=== PATIENT | female | born 1995 | race Hispanic/Latino ===

== ENCOUNTER 2019-02-13 19:13 | Emergency (ER) | payer SELFPAY ==
[2019-02-13 20:25] LABS: Urine Bacteria <20 /HPF (<20); Urine Culture Reflex Order NOT NEEDED; Urine RBC <5 /HPF (NONE SEEN)
[2019-02-13 20:26] LABS: Urine Blood TRACE (NEG); Urine Glucose NEGATIVE (NEG); Urine Protein NEGATIVE (NEG); Urine Specific Gravity <1.005 (1.005-1.030)
--- NOTE | 2019-02-13 20:28 | RAD REPORT ---
EXAM DESCRIPTION: RAD - Chest Single View - 02/13/2019 7:55 pm CLINICAL HISTORY: CHEST PAIN Chest pain. COMPARISON: No comparisons FINDINGS: Portable technique limits examination quality. The lungs are grossly clear. The heart is normal in size. No displaced fractures. IMPRESSION: No acute intrathoracic process suspected.
--- NOTE | 2019-02-13 20:57 | EDPHYS ---
Physician Documentation [facility] Name: Holli Arellano Age: 23 yrs Sex: Female : 1995 Arrival Date: 02/13/2019 Time: 19:13 Bed 6 Private MD: ED Physician Presley Renee HPI: 02/13 19:48 This 23 yrs old Female presents to ER via Ambulatory with complaints of Chest pan Pain. 19:48 The patient or guardian reports chest pain that is located primarily in the anterior pan chest wall. The pain does not radiate. Associated signs and symptoms: Pertinent positives: shortness of breath. The chest pain is described as dull. Duration: The patient or guardian reports multiple episodes, with no pattern. Modifying factors: The symptoms are alleviated by nothing. the symptoms are aggravated by nothing. Severity of pain: At its worst the pain was mild in the emergency department the pain is unchanged. The patient has not experienced similar symptoms in the past. 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 - Social history:: Smoking status: Patient/guardian denies using tobacco. - Ebola Screening: : No symptoms or risks identified at this time. - Family history:: not pertinent. ROS: 19:48 Constitutional: Negative for fever, chills, and weight loss, Eyes: Negative for injury, pan pain, redness, and discharge, ENT: Negative for injury, pain, and discharge, Neck: Negative for injury, pain, and swelling, Respiratory: Negative for shortness of breath, cough, wheezing, and pleuritic chest pain, Abdomen/GI: Negative for abdominal pain, nausea, vomiting, diarrhea, and constipation, Back: Negative for injury and pain, : Negative for injury, bleeding, discharge, and swelling, MS/Extremity: Negative for injury and deformity, Skin: Negative for injury, rash, and discoloration, Neuro: Negative for headache, weakness, numbness, tingling, and seizure. 19:48 Cardiovascular: Positive for chest pain. Exam: 19:48 Constitutional: This is a well developed, well nourished patient who is awake, alert, pan and in no acute distress. Head/Face: Normocephalic, atraumatic. Eyes: Pupils equal round and reactive to light, extra-ocular motions intact. Lids and lashes normal. Conjunctiva and sclera are non-icteric and not injected. Cornea within normal limits. Periorbital areas with no swelling, redness, or edema. ENT: Nares patent. No nasal discharge, no septal abnormalities noted. Tympanic membranes are normal and external auditory canals are clear. Oropharynx with no redness, swelling, or masses, exudates, or evidence of obstruction, uvula midline. Mucous membranes moist. Neck: Trachea midline, no thyromegaly or masses palpated, and no cervical lymphadenopathy. Supple, full range of motion without nuchal rigidity, or vertebral point tenderness. No Meningismus. Chest/axilla: Normal chest wall appearance and motion. Nontender with no deformity. No lesions are appreciated. Cardiovascular: Regular rate and rhythm with a normal S1 and S2. No gallops, murmurs, or rubs. Normal PMI, no JVD. No pulse deficits. Respiratory: Lungs have equal breath sounds bilaterally, clear to auscultation and percussion. No rales, rhonchi or wheezes noted. No increased work of breathing, no retractions or nasal flaring. Abdomen/GI: Soft, non-tender, with normal bowel sounds. No distension or tympany. No guarding or rebound. No evidence of tenderness throughout. Back: No spinal tenderness. No costovertebral tenderness. Full range of motion. Skin: Warm, dry with normal turgor. Normal color with no rashes, no lesions, and no evidence of cellulitis. MS/ Extremity: Pulses equal, no cyanosis. Neurovascular intact. Full, normal range of motion. Neuro: Awake and alert, GCS 15, oriented to person, place, time, and situation. Cranial nerves II-XII grossly intact. Motor strength 5/5 in all extremities. Sensory grossly intact. Cerebellar exam normal. Normal gait. Psych: Awake, alert, with orientation to person, place and time. Behavior, mood, and affect are within normal limits. 19:48 Musculoskeletal/extremity: DVT Exam: No signs of deep vein thrombosis. no pain, no swelling, no tenderness, negative Homans' sign noted on exam, no appreciated bluish discoloration, no erythema, no increased warmth. 19:48 Psych: Behavior/mood is pleasant, cooperative, Affect is calm, Oriented to person, place, time, Patient has no thoughts/intents to harm self or others. Vital Signs: 19:19 BP 120 / 80; Pulse 88; Resp 18; Temp 97.1; Pulse Ox 98% on R/A; Weight 54.43 kg; Height la1 5 ft. 1 in. (154.94 cm); Pain 4/10; 19:19 Body Mass Index 22.67 (54.43 kg, 154.94 cm) la1 MDM: 19:20 Patient medically screened. [facility] 19:51 Data reviewed: vital signs, nurses notes, lab test result(s), radiologic studies. [facility] 02/13 19:51 Order name: Urine Microscopic Only; Complete Time: 20:38 02/13 19:51 Order name: D-Dimer 02/13 19:35 Order name: Chest Single View XRAY; Complete Time: 20:38 [facility] 02/13 19:51 Order name: Urine Culture 02/13 19:51 Order name: Test, Serum 02/13 20:14 Order name: Urine Dipstick--Ancillary (enter results); Complete Time: 20:38 ar5 02/13 19:35 Order name: EKG; Complete Time: 19:36 [facility] 02/13 19:35 Order name: EKG - Nurse/Tech; Complete Time: 19:50 [facility] 02/13 19:35 Order name: Urine Dipstick-Ancillary (obtain specimen); Complete Time: 19:50 [facility] 02/13 19:35 Order name: Urine Test (obtain specimen); Complete Time: 19:50 [facility] Administered Medications: No medications were administered Disposition: 02/13/19 20:57 Discharged to Home. Impression: Other chest pain - non cardiac, Urinary tract infection, site not specified. - Condition is Stable. - Discharge Instructions: Alcohol Intoxication, Chest Wall Pain, Dysuria, Urinary Tract Infection, Adult, Chest Wall Pain, [id number], Alcohol Intoxication, Ufwn-ra-Usqq, Urinary Tract Infection, Adult, Ftik-ek-Mips, Alcohol Abuse and Nutrition. - Prescriptions for Bactrim DS 800- 160 mg Oral Tablet - take 1 tablet by ORAL route every 12 hours for 5 days; 10 tablet. - Medication Reconciliation Form, Thank You Letter, Antibiotic Education, Prescription Opioid Use form. - Follow up: Private Physician; When: 2 - 3 days; Reason: Recheck today's complaints, Continuance of care, Re-evaluation by your physician. - Problem is new. - Symptoms have improved. Signatures: Dispatcher [employer] EDWI Presley Renee MD MD cha Attema, Lee RN RN la1 Letty Davis RN RN ak1 Corrections: (The following items were deleted from the chart) 21:23 20:57 02/13/2019 20:57 Discharged to Home. Impression: Other chest pain - non cardiac; ak1 Urinary tract infection, site not specified. Condition is Stable. Discharge Instructions: Alcohol Intoxication, Chest Wall Pain, Dysuria, Urinary Tract Infection, Adult, Chest Wall Pain, Rksv-cu-Esea, Alcohol Intoxication, Ychu-fq-Obow, Urinary Tract Infection, Adult, Xqlf-ry-Mjoc, Alcohol Abuse and Nutrition. Prescriptions for Bactrim DS 800-160 mg Oral Tablet - take 1 tablet by ORAL route every 12 hours for 5 days; 10 tablet. and Forms are Medication Reconciliation Form, Thank You Letter, Antibiotic Education, Prescription Opioid Use. Follow up: Private Physician; When: 2 - 3 days; Reason: Recheck today's complaints, Continuance of care, Re-evaluation by your physician. Problem is new. Symptoms have improved. pan
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
--- NOTE | 2019-02-14 07:06 | EKG ---
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
== END 2019-02-13 21:23 | disposition home or self-care (01) ==
LOC: ER 19:13
DX: R07.89 Other chest pain (principal); N39.0 Urinary tract infection, site not specified
CPT/HCPCS: 36415; 71045; 81003; 81015; 84703; 85379; 87077; 87086; 87088; 87186; 93005